=== PATIENT | female | born 1980 | race Caucasian/White ===

== ENCOUNTER → 2017-03-16 | Outpatient (CLI) | payer OTHER ==
--- NOTE | 2017-03-16 11:58 | PCVCIMAG ---
APPROVED REPORT Study performed: 03/16/2017 10:45:15 EXAM: Comprehensive 2D, Doppler, and color-flow Echocardiogram Patient Location: Echo lab Status: routine BSA: 1.64 HR: 75 bpmBP: 114/82 mmHg Rhythm: NSR Other Information Study Quality: Good Indications Chest Pain 2D Dimensions LVEF(%): 69.76 (>50%) IVSd: 8.47 (7-11mm)LVOT Diam: 20.91 (18-24mm) LVDd: 44.44 mm PWd: 8.84 (7-11mm)Ascending Ao: 27.01 (22-36mm) LVDs: 27.05 (25-40mm) Left Atrium: 41.36 (27-40mm) Aortic Root: 21.54 mm LV Single Plane 4CH: 57.98 % LV Single Plane 2CH: 57.06 %Morrow's LVEF: 57.52 % Biplane EF: 58.6 % Volumes Left Atrial Volume (Systole) Single Plane 4CH: 57.24 mLSingle Plane 2CH: 37.15 mL Aortic Valve AoV Peak Dung.: 1.32 m/s AO Peak Gr.: 6.97 mmHgLVOT Max P.02 mmHg LVOT Max V: 1.00 m/s SAMEER Vmax: 2.61 cm2 Mitral Valve E/A Ratio: 1.4 MV Decel. Time: 183.57 ms MV E Max Dung.: 0.73 m/s MV A Dung.: 0.52 m/s IVRT: 86.51 ms TDI E/Lateral E': 4.87E/Medial E': 6.64 Medial E' Dung.: 0.11 m/s Lateral E' Dung.: 0.15 m/s Pulmonary Valve PV Peak Dung.: 1.18 m/sPV Peak Gr.: 5.52 mmHg Pulmonary Vein P Vein S: 0.40 m/sP Vein A: 0.37 m/s P Vein D: 0.56 m/sP Vein A Dur.: 103.8 msec P Vein S/D Ratio: 0.71 Tricuspid Valve TR Peak Dung.: 2.34 m/s TR Peak Gr.: 21.87 mmHg TV Vmax: 0.76 m/s Left Ventricle The left ventricle is normal size. There is normal LV segmental wall motion. There is normal left ventricular wall thickness. Left ventricular systolic function is normal. The left ventricular ejection fraction is within the normal range. LVEF is 55-60%. The left ventricular diastolic function is normal. Right Ventricle The right ventricle is normal size. The right ventricular systolic function is normal. Atria The left atrium size is normal. The right atrium size is normal. Aortic Valve The aortic valve is normal in structure. No aortic regurgitation is present. There is no aortic valvular stenosis. Mitral Valve The mitral valve is normal in structure. There is no mitral valve regurgitation noted. No evidence of mitral valve stenosis. Tricuspid Valve The tricuspid valve is normal in structure. There is no tricuspid valve regurgitation noted. Pulmonic Valve The pulmonary valve is normal in structure. There is no pulmonic valvular regurgitation. Great Vessels The aortic root is normal in size. IVC is normal in size and collapses with >50% inspiration Pericardium There is no pericardial effusion. <Conclusion> 1. Normal echocardiogram with Doppler EF 60% 2. Pulmonary artery pressure of 25mmHg 3. No pericardial effusion
--- NOTE | 2017-03-16 16:22 | PCVCIMAG ---
APPROVED REPORT Patient Location: Echo lab- [facility] STRESS TEST Room #: 2 Stress Nurse: Bhavya Mathews RN INDICATIONS: L arm,shoulder pain, Fam hx early onset CAD The patient exercised according to the James protocol for 14:02 minutes, achieving a work level of Max METS 17.5. The resting heart rate of 81bpm brianna to a maximal heart rate of 171bpm. This value represents 92% of the maximal, age predicted heart rate. The resting blood pressure of 114/82mmHg brianna to a maximum blood pressure of 140/72mmHg. The exercise test was stopped due to fatigue. Resting ECG: Normal Stress ECG: Normal. No dysrhythmias Conclusion 1. Maximal treadmill stess test negative for ischemia 2. No subjective signs of ischemia such as chest pain or ischemic-sounding symptoms 3. This study was associated with excellent exercise capacity (17.5 METS).
== END | disposition home or self-care (01) ==
LOC: PCVCIMAG 10:39
PROVIDERS: ATTEND Internal Medicine
DX: M79.602 Pain in left arm (principal); R07.9 Chest pain, unspecified; E78.5 Hyperlipidemia, unspecified; Z82.49 Family history of ischemic heart disease and other diseases of the circulatory system; Z79.899 Other long term (current) drug therapy
CPT/HCPCS: 80061; 93017; 93306; G0463